=== PATIENT | male | born 1995 | race Caucasian/White ===

== ENCOUNTER 2018-05-08 12:23 | Inpatient (IN) | payer BC, OTHER ==
[~2018-05-08] VITALS: Ht 193 cm; Wt 63.5 kg
--- NOTE | 2018-05-08 16:14 | NUR ---
Intake Assessment; Patient is a 22 year old male, AOX4, presented to [facility] to detoxify from ETOH and Cocaine. Patient flew in from [place] and arrived at intake office at approximately 1545. Patient presented with anxiety, flushed face, stomach cramps , complaining of nausea. Patient is accompanied by his father who assisted him in getting into Detox. Patient denies history of seizures and no known allergies noted. Educated patient regarding the importance of compliance to treatment and unit protocol, Patient verbalized understanding. Will continue with further assessment when patient is up on the unit.
[2018-05-08] MEDS ORDERED: MAG HYDROX/AL HYDROX/SIMETH 30 ML LIQUID UDC PO PRN (16:15)
[2018-05-08] MEDS ORDERED: ALBUTEROL INH PRN (16:15)
[2018-05-08] MEDS ORDERED: ONDANSETRON 4 MG/2 ML VIAL IM PRN (16:15)
[2018-05-08] MEDS ORDERED: DICYCLOMINE HCL 20 MG TABLET PO PRN (16:15)
[2018-05-08] MEDS ORDERED: THIAMINE HCL 200 MG/2 ML VIAL IM ONE (16:15)
[2018-05-08] MEDS ORDERED: ONDANSETRON ODT 4 MG TAB.RAPDIS SL PRN (16:15)
[2018-05-08] MEDS ORDERED: MIRALAX 17 GM POWD.PACK PO PRN (16:15)
[2018-05-08] MEDS ORDERED: MAGNESIUM HYDROXIDE 30 ML LIQUID UDC PO PRN (16:15)
[2018-05-08] MEDS ORDERED: CLONIDINE HCL 0.1 MG TABLET PO PRN (16:15)
[2018-05-08] MEDS ORDERED: IBUPROFEN 400 MG TABLET PO PRN (16:15)
[2018-05-08] MEDS ORDERED: LORAZEPAM 2 MG/1 ML VIAL IM PRN (16:15)
[2018-05-08] MEDS ORDERED: ACETAMINOPHEN 325 MG TABLET PO PRN (16:15)
[2018-05-08] MEDS ORDERED: LORAZEPAM 1 MG TABLET PO PRN ×2 (16:15)
[2018-05-08] MEDS ORDERED: LOPERAMIDE HCL 2 MG CAPSULE PO PRN ×2 (16:15)
[2018-05-08] MEDS ORDERED: ALBU8.5H8 INH (17:12)
[2018-05-08 17:20] LABS: *AMPHETAMINE, URINE NEGATIVE (NEGATIVE); *BARBITURATE, URINE NEGATIVE (NEGATIVE); *CANNABINOID, URINE NEGATIVE (NEGATIVE); *COCCAINE, URINE POSITIVE (NEGATIVE); *OPIATE, URINE NEGATIVE (NEGATIVE); *PHENCYCLIDINE SCREEN,URINE NEGATIVE (NEGATIVE)
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
[2018-05-08 18:14] LABS: BASOPHILS % (AUTO) 0.3 % (0.0-2.0); EOSINOPHILS % (AUTO) 1.8 % (0.0-7.0); HEMATOCRIT 43.4 % (36.7-47.1); LYMPHOCYTES % (AUTO) 24.5 % (20.5-51.5); MEAN CORPUSCULAR HEMOGLOBIN 32.7 uug (23.8-33.4); MEAN CORPUSCULAR HGB CONC 35 g/dL (32.5-36.3); MEAN CORPUSCULAR VOLUME 94.8 fL (73.0-96.2); MONOCYTES % (AUTO) 8.1 % (0.0-11.0); NEUTROPHILS % (AUTO) 65.3 % (38.5-71.5); PLATELET COUNT (AUTO) 324 K/uL (152-348); RED BLOOD CELL COUNT(AUTO) 4.58 MIL/uL (4.06-5.63); WHITE BLOOD COUNT (AUTO) 6.9 K/uL (3.6-10.2)
[2018-05-08 18:15] LABS: EOSINOPHILS # (AUTO) 0.1 K/uL (0.0-0.7); LYMPHOCYTES # (AUTO) 1.7 K/uL (20.0-40.0); MONOCYTES # (AUTO) 0.6 K/uL (2.0-10.0); NEUTROPHILS # (AUTO) 4.5 K/uL (1.8-8.9)
[2018-05-08 18:19] LABS: ALANINE AMINOTRANSFERASE 44 U/L (16-63); ALKALINE PHOSPHATASE 116 U/L (50-136); AMYLASE 26 U/L (25-115); ASPARTATE AMINOTRANSFERASE 31 U/L (15-37); BILIRUBIN,TOTAL 0.6 mg/dL (0.2-1.0); CARBON DIOXIDE 28 mmol/L (21-32); CHLORIDE 104 mmol/L (98-107); CREATININE 1.1 mg/dL (0.6-1.3); GLUCOSE 138 mg/dL (74-106); MAGNESIUM 1.8 mg/dL (1.8-2.4); POTASSIUM 4.1 mmol/L (3.5-5.1); TOTAL PROTEIN, SERUM 6.9 g/dL (6.4-8.2); UREA NITROGEN, BLOOD 13 mg/dL (7-18)
[2018-05-08 18:23] LABS: ETHANOL < 3 MG/DL (0-0)
[2018-05-08 18:30] LABS: THYROID STIMULATING HORMONE 0.321 mIU/mL (0.358-3.740)
--- NOTE | 2018-05-08 18:56 | NUR ---
End of shift note; Patient is AOX4, presented with anxiety, restless legs, flushed face, stomach cramps. Patient current CIWA is 4, patient did not require PRN medications at this time. Encouraged patient to verbalize feelings and to report any s/s of withdrawals, patient verbalized understanding. All safety measures secured. Met all needs.
--- NOTE | 2018-05-08 19:30 | NUR ---
Start of Shift Pt admitted earlier today, 05/08/18, for medically managed withdrawal/detox from ETOH and Cocaine salts. Pt presents with PMH of Asthma, anxiety, depression, and restless leg syndrome, NKA's, listed as a full code, on a regular diet. PRN's, no taper, available for now. Pt exhibits sweats, hand tremors, nausea without emesis, anxiety and agitation. Flat affect, reponds to questions bluntly, labile, anxious and agitated but guarded and suspicious. Denies HI/SI though appears depressed/worried with poor eye contact. Pt appears undernourished/pale. Pt requesting Benedryl for sleep aid. Will monitor for shift until morning endorsment
[2018-05-08 20:00] VITALS: BP 106/66
[2018-05-08] MEDS: diphenhydrAMINE 50 MG CAPSULE PO PRN (20:53)
--- NOTE | 2018-05-08 20:53 | NUR ---
PRN Med Benedryl 50mg PO given for insomnia. Will continue to monitor, reassessing in 1 hour.
[2018-05-08] MEDS ORDERED: LORAZEPAM 1 MG TABLET PO SCH (21:00)
--- NOTE | 2018-05-08 21:53 | NUR ---
PRN Reassessment Benedryl 50mg PO given 1 hour prior for insomnia. At present Pt sleeping, RR 16, even and nonlabored. Will continue to monitor for any s/s's pain or withdrawal.
[2018-05-09] VITALS: BP 95/58
--- NOTE | 2018-05-09 | NUR ---
VS's obtained, CIWA Deferred VS's obtained/stable. CIWA deferred r/t pt sleeping/refused. Will continue to monitor for any s/s's pain or w/d.
[2018-05-09 04:00] VITALS: BP 111/64
--- NOTE | 2018-05-09 04:00 | NUR ---
CIWA Deferred VS's obtained. BP 111/64, HR 53-bradycardic, RR 16 w 99% SaO2. CIWA deferred r/t pt sleeping/refused. CN notified of bradycardia, will continue to monitor and pass in morning endorsement, as well as monitoring for any s/s's pain or w/d
--- NOTE | 2018-05-09 07:23 | NUR ---
End of Shift Pt endorsement given to day nurse. Pt admitted 05/08/18, for medically managed withdrawal/detox from ETOH and Cocaine salts. Pt presents with PMH of Asthma, and restless leg syndrome, PPH of anxiety and depression. NKA's, listed as a full code, on a regular diet. Ativan PRN's, no taper, available for now. Pt continues to exhibit sweats, hand tremors, nausea without emesis, anxiety and agitation. Last CIWA was 9 at 2000 hours. Flat affect, reponds to questions bluntly, anxious and agitated, guarded and suspicious. Appears depressed/worried with poor eye contact. Pt appears undernourished/pale. Benedryl for sleep only PRN given for this shift, with pt sleeping 9 hours, with 500mls intake and 2 voids. Safety precautions remain in effect with bed locked and in lowest position, siderails up x 2, call light within reach and all needs attended to.
--- NOTE | 2018-05-09 07:30 | NUR ---
Start of shift note; Received report from night nurse. Patient is a 22 year old male admitted on 05/08/18 for ETOH withdrawal. Patient presented with tremors, anxiety, stomach cramps, flushed face and diaphoresis. Patient is currently on PRN medications, to evaluated by MD today for taper orders. Patient's last CIWA score is 9 per endorsement. Patient received PRN Benadryl noted to be effective. Educated patient regarding the importance of compliance to treatment and medication regime, verbalized understanding. Encouraged patient to participate in group therapy and activities. All safety measures secured. Will continue to monitor patient.
[2018-05-09 08:00] VITALS: BP 110/61
[2018-05-09] MEDS: MULTIVITAMINS,THERAPEUTIC TABLET PO SCH (09:00)
[2018-05-09] MEDS: FOLIC ACID 1 MG TABLET PO SCH (09:00)
[2018-05-09] MEDS ORDERED: TUBERCULIN,PURIF.PROT.DERIV. 5 TU/0.1 ML TEST ID ONE (09:00)
[2018-05-09] MEDS: THIAMINE HCL 100 MG TABLET PO SCH (09:00)
[2018-05-09 12:00] VITALS: BP 115/68
--- NOTE | 2018-05-09 12:24 | NUR ---
PRN medication; Patient is AOX4, upon assessment patient's CIWA score is 12 manifested by increase in anxiety and agitation, sweats, patient is complaining of stomach cramps, tremors, depression, chills and headache. PRN Ativan 1mg PO PRN given for CIWA of 12 per MD order. Encouraged patient verbalize feelings. Will closely monitor patient.
--- NOTE | 2018-05-09 12:27 | NUR ---
UDS result clarification; Patient's UDS result came back positive for benzodiazepine. Patient reported taking one dose of Xanax yesterday prior to getting in the plane due to increase anxiety during flight. Patient denies dependence to Benzodiazepines. Patient also clarified that he has a prescription for Ativan and Klonopin but denies dependence to these medications, patient last took these medications months ago. Patient stated "i have a prescription but i only take it when i really need it,i don't like taking pills".
--- NOTE | 2018-05-09 13:34 | NUR ---
Re-assessment; Patient is still showing s/s of withdrawals manifested by anxiety, agitation, stomach cramps, sweats, chills and tremors. Patient's current CIWA went down to 11 from CIWA of 12. PRN Ativan noted to be effective. MD notified by Charge nurse regarding patient's withdrawal symptoms, awaiting for further orders.
[2018-05-09] MEDS ORDERED: GABAPENTIN 300 MG CAPSULE PO SCH (15:00)
[2018-05-09] MEDS: LORAZEPAM 1 MG TABLET PO SCH ×2 (15:34→20:26)
[2018-05-09 16:00] VITALS: BP 125/67
--- NOTE | 2018-05-09 18:54 | NUR ---
End of shift note; Patient is AOX4, presented with anxiety, stomach cramps, restless legs, sweats, depression. Patient remained compliant with treatment plan and medication regime. Medications were effective in reducing withdrawal symptoms. Encouraged patient to participate in group activities and therapy. Patient received PRN Ativan 1mg PO for s/s of withdrawal noted to be effective. MD placed order for scheduled Ativan 2mg for 1500 and 2100 today. Patient 's last CIWA score is 11. All safety measures secured. Met all needs.
--- NOTE | 2018-05-09 19:30 | NUR ---
Start of Shift Endorsement rec'd from day, reports pt as quiet, isolative to room encouragement needed to self-express. Prn Ativan given during day, last reported CIWA 11 at 1600 hours.Pt admitted 05/07/18 for medically managed withdrawal/detox from ETOH (500-750mls/day, whiskey) and Cocaine salts (.5 to 1 gram/day). Pt presents with a PMH of Asthma and Restless Legs Syndrome, Allergic Rhinitis. PPH of Anxiety and Depression and ADD. Pt is a full code status, with NKA's, and is on a regular diet. Pt denies having any withdrawal induced seizures. Pt found in room, appears to be undernourished, presents with flat affect, cooperative but guarded. Pt admits to nausea, tremors apparent, alternating chills/sweats, increased anxiety. Denies H/A, fullness, B/A's or pain or discomfort, skin intact, warm and moist. Last BM in morning, normal by pt account. Hydration, nourishment encouraged. Safety measure in place: bed locked and in lowest position with siderails x 2 up. Pt due for scheduled medications, educated pt in importance of expressing s/s's. Will continue to monitor for any s/s's pain or w/d
[2018-05-09 20:00] VITALS: BP 136/87
[2018-05-09] MEDS: GABAPENTIN 300 MG CAPSULE PO SCH (20:24)
[2018-05-09] MEDS: diphenhydrAMINE 50 MG CAPSULE PO PRN (20:24)
--- NOTE | 2018-05-09 20:24 | NUR ---
PRN Meds Benedryl 50mg PO for insomnia and Zofran 4mg SL for nausea w/o emesis given. Will continue to monitor, reassessing in 1 hour.
--- NOTE | 2018-05-09 21:24 | NUR ---
PRN Reassessment Benedryl 50mg PO for insomnia and Zofran 4mg SL for nausea w/o emesis given 1 hour prior. At present pt reports improvement in nausea, reports feeling "drowsy". Meds effective
[2018-05-10] VITALS: BP 118/62
--- NOTE | 2018-05-10 | NUR ---
CIWA Deferred Midnight VS's obtained and stable, CIWA deferred r/t pt sleeping/refused. Will continue to monitor for any s/s's pain or w/d
[2018-05-10 04:00] VITALS: BP 118/74
--- NOTE | 2018-05-10 04:00 | NUR ---
0400 CIWA Deferred VS's obtained/stable. BP 118/74, HR 60, RR 16, SaO2, 100%. CIWA deferred r/t pt sleeping/refused. Will continue to monitor, assessing for any s/s's of pain or w/d.
--- NOTE | 2018-05-10 07:16 | NUR ---
End of Shift Endorsement given to day nurse. Pt continues to tolerate scheduled Ativan well. Pt isolated in room for shift, nourishment improving marginally, with healthier choices encouraged and pt receptive. Pt continues with flat affect , appears depressed and reports increased anxiety, worried with feelings of low self-esteem. VS's stable for shift, last CIWA 12 at 2000 hours, rated highest for anxiety. PRN's of Benedryl and Zofran given this shift, no episodes of emesis demonstrated. Pt slept for 8 hours, with 1065mls intake and 2 voids. Pt remains a full code, denies any known allergies and on a regular diet. Safety precautions remain in place, fall and seizure, with bed in lowest position and locked, side rails up x 2, all needs attended and in no distress.
--- NOTE | 2018-05-10 07:20 | NUR ---
START OF SHIFT NOTE: received pt from lead man over all dies in pattern shop nurse, pt is in stable condition no s/s of pain or discomfort at this time. last documented ciwa 12. pt is tolerating medications as ordered. will encourage pt to attend groups and activities. will monitor pt for any changes and continue to meet pt's needs
[2018-05-10] MEDS: THIAMINE HCL 100 MG TABLET PO SCH (08:46)
[2018-05-10] MEDS: GABAPENTIN 300 MG CAPSULE PO SCH ×3 (08:46→21:07)
[2018-05-10] MEDS: FOLIC ACID 1 MG TABLET PO SCH (08:46)
[2018-05-10] MEDS: MULTIVITAMINS,THERAPEUTIC TABLET PO SCH (08:46)
[2018-05-10] MEDS ORDERED: LORAZEPAM 1 MG TABLET PO SCH (09:00)
[2018-05-10 09:07] VITALS: BP 117/63
[2018-05-10 12:55] VITALS: BP 121/64
[2018-05-10 13:06] LABS: HEPATITIS B SURFACE AG Negative (Negative)
--- NOTE | 2018-05-10 13:23 | NUR ---
pt at this time does not exhibit s/s of depression, pt appears flat in affect, pt has not attended groups today but has left his room to go and smoke. will encourage pt to attend groups and activities for the rest of the shift .
[2018-05-10] MEDS ORDERED: DIPH50CA37 PO (16:22)
[2018-05-10] MEDS ORDERED: IBUP-1953 PO (16:22)
[2018-05-10] MEDS ORDERED: GABA-534 PO (16:22)
[2018-05-10] MEDS ORDERED: CLON0.1T14 PO (16:22)
[2018-05-10] MEDS ORDERED: HYDR-3895 PO (16:22)
[2018-05-10] MEDS: HYDROXYZINE PAMOATE 25 MG CAPSULE PO PRN ×2 (16:23→16:29)
[2018-05-10] MEDS ORDERED: CLONIDINE HCL 0.1 MG TABLET PO ONE (16:30)
--- NOTE | 2018-05-10 16:32 | NUR ---
x1 administration of clonidine and vistaril was administered, pt verbalized i just work myself up for no reason and randomly get panic attacks it runs in my family.
[2018-05-10 17:04] VITALS: BP 143/94
--- NOTE | 2018-05-10 18:43 | NUR ---
END OF SHIFT NOTE: pt is in stable condition, sleeping at this time. pt is set to discharge tomorrow. [facility] withdrawal/dependence. pt's last noted ciwa is 13. pt had a panic attack at 1632 and administered clonidine and vistaril. medications were effective, pt verbalized he works himself for no or the smallest reasons and he just has really bad anxiety it runs in his family he said. will endorse pt to maintenance mechanic 2nd shift nurse.
[2018-05-10 20:00] VITALS: BP 131/79
--- NOTE | 2018-05-10 20:00 | NUR ---
Start of Shift Patient sitting on the couch inside room, watching tv, AAOx4 and noted to be melancholic and in depressed mood. Pt c/o anxiety and with low energy. Pt noted to be unkempt, with dark undereye circles and dirty fingernails. Fall, universal, seizure and safety prec in place. Call light within reach. Latest CIWA=10. Will continue to monitor.
--- NOTE | 2018-05-10 21:09 | NUR ---
RN note PRN Clonidine Pt c/o anxiety and noted to have increasing agitation. BP fccuooq=195/92, GHwmv=653. Administered Clonidine 0.1 mg PO PRN as ordered. Will reassess.
--- NOTE | 2018-05-10 22:10 | NUR ---
RN note reassess Pt verbalized that anxiety level has decreased. OZ=683/77, pulse=88.
[2018-05-11] VITALS: BP 126/82
[2018-05-11 04:00] VITALS: BP 118/79
--- NOTE | 2018-05-11 07:06 | NUR ---
End of Shift Patient is asleep on bed but arousable, AAOx4 and continues to be melancholic and isolative. Pt still noted to be unkempt, with dark undereye circles and dirty fingernails. Encouraged patient to take a shower before being discharged today. Fall, universal, seizure and safety prec in place. Call light within reach. Latest CIWA=7, slept for 7 hours. Endorsed to AM shift nurse for continuity of care.
[2018-05-11 08:00] VITALS: BP 102/61
--- NOTE | 2018-05-11 08:04 | NUR ---
START OF SHIFT PT IS A 22 Y/O M ADMITTED ON 05/07/18 FOR MEDICALLY SUPERVISED ETOH WITHDRAWAL. PT HAS BEEN MEDICALLY CLEARED TO BE DISCHARGED TODAY. LAST CIWA 7 AND PT WAS GIVEN CLONIDINE PRN LAST NIGHT. RECEIVED PT LAYING IN BED AND A/OX4, RESPIRATIONS EVEN AND UNLABORED. PT APPEARS DISHEVELED, WITHDRAWN AND ANXIOUS, HAS A FLAT AFFECT, HAS DIRTY FINGERNAILS, AND ROOM IS UNKEMPT WITH EMPTY DRINK BOTTLES ON TABLE. PT STATES HE IS READY TO BE DISCHARGE AND MOTIVATED TO STAY SOBER. SIDE RAILS UPX2, BED IN LOW POSITION, CALL LIGHT IS WITHIN REACH. WILL CONTINUE TO MONITOR.
[2018-05-11] MEDS: MULTIVITAMINS,THERAPEUTIC TABLET PO SCH (08:58)
[2018-05-11] MEDS: FOLIC ACID 1 MG TABLET PO SCH (08:58)
[2018-05-11] MEDS: HYDROXYZINE PAMOATE 25 MG CAPSULE PO PRN (08:58)
[2018-05-11] MEDS: GABAPENTIN 300 MG CAPSULE PO SCH (08:58)
[2018-05-11] MEDS: THIAMINE HCL 100 MG TABLET PO SCH (08:58)
--- NOTE | 2018-05-11 09:38 | NUR ---
DISCHARGE NOTE PT IS IN STABLE CONDITION, VS WNL. DISCHARGE INSTRUCTIONS GIVEN PT VERBALIZED UNDERSTANDING. LAST CIWA 7. PT STATED HE IS READY FOR DISCHARGE. PT HAS LEFT THE BUILDING AT 0938 WITH ALL BELONGINGS. PRESCRIPTIONS, AND DISCHARGE PAPERWORK. PT HAS BEEN PICKED UP BY [facility] AND MAO BEEN TAKEN TO [facility]. NOTIFIED OF PT D/C. Addendum: 05/11/18 at 1023 by ARISTIDES BEARDEN RN PT DISCHARGED ON 05/11/18 AT 0938.
== END 2018-05-11 09:38 | disposition other institution (70) | DRG 895 ==
LOC: SRC 15:20
PROVIDERS: ADMIT Internal Medicine; ATTEND Internal Medicine
PROC: HZ2ZZZZ Detoxification Services for Substance Abuse Treatment (ICD-10-PCS; principal; 2018-05-08)
PROC: HZ51ZZZ Individual Psychotherapy for Substance Abuse Treatment, Behavioral (ICD-10-PCS; 2018-05-10)
DX: F10.230 Alcohol dependence with withdrawal, uncomplicated (principal); F14.10 Cocaine abuse, uncomplicated; Y90.0 Blood alcohol level of less than 20 mg/100 ml; F17.210 Nicotine dependence, cigarettes, uncomplicated; J45.20 Mild intermittent asthma, uncomplicated; Z81.8 Family history of other mental and behavioral disorders; F90.9 Attention-deficit hyperactivity disorder, unspecified type; G25.81 Restless legs syndrome; F41.9 Anxiety disorder, unspecified; Z65.3 Problems related to other legal circumstances; F32.9 Major depressive disorder, single episode, unspecified; E07.81 Sick-euthyroid syndrome; E05.90 Thyrotoxicosis, unspecified without thyrotoxic crisis or storm
CPT/HCPCS: 36415; 80307; 80346; 80353; 83735; 84443; 85025; 86580; 86592; 86705; 86803; 87340; 87806; A4663; G0480; J3411; Q0162; Q0163